=== PATIENT | male | born 2000 | race Caucasian/White ===

== ENCOUNTER 2024-09-16 22:46 | Emergency (ER) | payer MEDICAID, OTHER ==
[~2024-09-16] VITALS: Ht 160 cm; Wt 73.0 kg
[~2024-09-16 22:46] MED LIST: ALBUTEROL; PROAIR; PROMETHAZINE; [UNRECOGNIZED DRUG - OTHER]
[2024-09-16 22:51] VITALS: BP 127/88; RESP 20; TEMP 98.3; O2SAT 100
[2024-09-16 22:52] VITALS: PULSE 85; O2SAT 100
[2024-09-16 23:48] LABS: BASOPHILS % 0.3 % (0.0-2.0); EOSINOPHILS % 0.3 % (0.0-5.0); HEMATOCRIT. 46.3 % (42.0-52.0); HEMOGLOBIN. 15.6 g/dL (14.0-18.0); LYMPHOCYTES % 9.9 % (20.0-50.0); MEAN CORPUSCULAR HEMOGLOBIN 30.6 pg (28.0-32.0); MEAN CORPUSCULAR HGB CONC 33.8 g/dL (31.0-37.0); MEAN CORPUSCULAR VOLUME 90.8 fL (80.0-94.0); MEAN PLATELET VOLUME 9.5 fl (7.4-10.4); MONOCYTES % 4.3 % (2.0-8.0); NEUTROPHILS % 85.2 % (40.0-76.0); PLATELET 256 x1000/uL (130-400); RED CELL DISTRIBUTION WIDTH 13.4 % (11.6-14.6); WHITE BLOOD COUNT 13.6 x1000/uL (4.5-11.0)
[2024-09-16 23:51] LABS: CHLORIDE 110 mEq/L (98-107); POTASSIUM 3.2 mEq/L (3.5-5.1); SODIUM 142 mEq/L (136-145)
[2024-09-16 23:52] LABS: CALCIUM 10.2 mg/dL (8.7-10.4); CARBON DIOXIDE 20 mEq/L (21-32)
[2024-09-16 23:57] LABS: CREATININE 0.9 mg/dL (0.6-1.3); GLUCOSE 99 mg/dL (70-105); UREA NITROGEN BLOOD 11 mg/dL (9-23)
[2024-09-16 23:58] LABS: TROPONIN I HIGH SENSITIVITY 7 ng/L (3.0-53)
[2024-09-17] MEDS ORDERED: IBUP-2029 MT (00:07)
== END 2024-09-17 00:31 | disposition home or self-care (01) ==
LOC: ER 22:46
DX: R09.1 Pleurisy (principal); J45.909 Unspecified asthma, uncomplicated; Z79.899 Other long term (current) drug therapy
CPT/HCPCS: 36415; 71045; 80048; 83880; 84484; 85025; 85379; 93005; 99285